=== PATIENT | female | born 1995 | race Caucasian/White ===

== ENCOUNTER 2017-03-03 11:51 | Emergency (ER) | payer OTHER ==
[~2017-03-03] VITALS: Ht 167.6 cm; Wt 97.0 kg
[~2017-03-03 11:51] MED LIST: FLAGYL500 MG PO; JUNEL FE 1/21 TABLET PO; MOTRIN600 MG PO; MOTRIN800 MG PO; NORCO 5/3251 TABLET PO; PEN-VEE K,VEET500 MG PO; ROBITUSSIN DM118 ML PO; SPRINTEC1 EACH PO; TESSALON PERLE100 MG PO; ULTRAM50 MG PO; VALTREX1000 MG PO
[2017-03-03] MEDS ORDERED: FLEXERIL10 MG PO ×2 (12:07→13:22)
[2017-03-03] MEDS ORDERED: NAPROSYN500 MG PO (13:22)
[2017-03-03 13:32] VITALS: BP 138/87
== END 2017-03-03 13:32 | disposition home or self-care (01) ==
LOC: EME → EDBD 11:51 → EME 13:32
DX: S13.4XXA Sprain of ligaments of cervical spine, initial encounter (principal); M54.5 Low back pain; G89.29 Other chronic pain; V49.88XA Car occupant (driver) (passenger) injured in other specified transport accidents, initial encounter; Y92.410 Unspecified street and highway as the place of occurrence of the external cause
CPT/HCPCS: 72040; 72070; 99281; 99284

== ENCOUNTER 2017-07-07 10:30 | Emergency (ER) | payer OTHER ==
[~2017-07-07] VITALS: Ht 165.1 cm; Wt 97.7 kg
[~2017-07-07 10:30] MED LIST changes: +FLEXERIL10 MG PO; +NAPROSYN500 MG PO
[2017-07-07] MEDS ORDERED: OXYCODONE H5 MG/5 ML PO (14:11)
[2017-07-07 14:49] VITALS: BP 106/68
== END 2017-07-07 14:58 | disposition home or self-care (01) ==
LOC: EME 10:30
DX: G89.18 Other acute postprocedural pain (principal); M41.9 Scoliosis, unspecified; Z87.891 Personal history of nicotine dependence
CPT/HCPCS: 70360; 99281; 99284; J1885; J7030

== ENCOUNTER 2017-07-17 21:48 | Day surgery (SDC) | payer OTHER ==
[~2017-07-17] VITALS: Ht 165.1 cm; Wt 95.4 kg
[~2017-07-17 21:48] MED LIST changes: +OXYCODONE H5 MG/5 ML PO
[2017-07-17 22:50] LABS: HEMATOCRIT 38.9 % (36.0-46.0); MCH 30.4 PG (29.0-34.0); MCHC 33.7 G/DL (30.0-36.0); MCV 90.3 FL (83-99); MEAN PLAT.VOLUME 10.9 uM^3 (9.5-12.4); PLATELET COUNT 305 K/uL (156-360); RBC DIS.WIDTH-CV 12.5 % (11.8-14.6); RBC DIS.WIDTH-SD 41.7 % (39-53); RED BLOOD COUNT 4.31 M/uL (3.80-5.20); WHITE BLOOD COUNT 15.7 K/uL (4.1-10.2)
[2017-07-17 22:59] LABS: CHLORIDE 108 mEq/L (99-109); SODIUM 140 mEq/L (136-147)
[2017-07-17 23:01] LABS: GLUCOSE 87 mg/dL (70-99)
[2017-07-17 23:02] LABS: ANION GAP 11 MEQ/L (2-14)
[2017-07-17 23:05] LABS: GFR ESTIMATE (CALCULATED) > 59 mL/min/; UREA NITROGEN (BUN) 15 mg/dL (9-23)
[2017-07-18 01:16] VITALS: BP 128/70
[2017-07-18 06:43] VITALS: BP 121/56
== END 2017-07-18 09:20 | disposition home or self-care (01) ==
LOC: EME 21:48 → SDC 22:58 → 2EAST 23:44 → 2SOUTH 23:44 → ENRESERV 23:59 → 2EAST 07-18 01:04
PROVIDERS: Emergency Medicine
PROC: 0W337ZZ Control Bleeding in Oral Cavity and Throat, Via Natural or Artificial Opening (ICD-10-PCS; principal; 2017-07-17)
DX: J95.830 Postprocedural hemorrhage of a respiratory system organ or structure following a respiratory system procedure (principal); Z87.891 Personal history of nicotine dependence
CPT/HCPCS: 80048; 85027; 86850; 86900; 86901; 99281; 99284; G0378; J0330; J1170; J2250; J2405; J2765; J3010; J7030